=== PATIENT | female | born 1965 | race Caucasian/White ===

== ENCOUNTER 2017-12-27 18:00 | Emergency (ER) | payer OTHER ==
[2017-12-27 18:12] VITALS: BP 125/80
--- NOTE | 2017-12-27 18:27 | ED ---
Skin Complaint - HPI Summary HPI Summary: 52F presents with rash on chest and neck for past 2 days. She states rash did start after she touched her nephew who lives with someone who works outdoors. She has never had this rash before. She states the rash is itchy. She has not tried anything on it. She states she did have a runny nose a week ago. [place] a [place] ago. She is concerned she has the measles but she denies any fever or eye pain or discharge. The rash is spreading. She denies any new products or soaps. She denies any cough. - History of Current Complaint Chief Complaint: UCRash Time Seen by Provider: 12/27/17 18:17 Stated Complaint: RASH Pain Intensity: 2 - Allergy/Home Medications Allergies/Adverse Reactions: Allergies Allergy/AdvReac Type Severity Reaction Status Date / Time No Known Allergies Allergy Verified 12/27/17 18:13 PMH/Surg Hx/FS Hx/Imm Hx Endocrine/Hematology History: Denies: Hx Diabetes Cardiovascular History: Denies: Hx Hypertension, Hx Pacemaker/ICD Respiratory History: Denies: Hx Asthma History: Denies: Hx Renal Disease Musculoskeletal History: Denies: Hx Rheumatoid Arthritis, Hx Osteoporosis Sensory History: Denies: Hx Hearing Aid Neurological History: Denies: Hx Headaches Psychiatric History: Denies: Hx Panic Disorder - Cancer History Hx Chemotherapy: No Hx Radiation Therapy: No Infectious Disease History: No Infectious Disease History: Denies: Traveled Outside the [place] in Last 30 Days - Family History Known Family History: Positive: Other - no fam history of ezcema - Social History Alcohol Use: Occasionally Substance Use Type: Reports: None Smoking Status (MU): Never Smoked Tobacco Review of Systems Negative: Fever Negative: Chest Pain Negative: Shortness Of Breath Positive: Rash All Other Systems Reviewed And Are Negative: Yes Physical Exam Triage Information Reviewed: Yes Vital Signs On Initial Exam: Initial Vitals Temp Pulse Resp BP Pulse Ox 99.1 F 57 18 125/80 100 12/27/17 18:09 12/27/17 18:09 12/27/17 18:09 12/27/17 18:09 12/27/17 18:09 Vital Signs Reviewed: Yes Appearance: Positive: Well-Appearing Skin: Positive: Warm, Dry, Other - erthymatous patch like rash across chest and neck Head/Face: Positive: Normal Head/Face Inspection Eyes: Positive: Normal, EOMI, LUANN ENT: Positive: Normal ENT inspection, Pharynx normal, TMs normal Respiratory/Lung Sounds: Positive: Clear to Auscultation, Breath Sounds Present Cardiovascular: Positive: Normal, RRR Abdomen Description: Positive: Nontender, Soft Bowel Sounds: Positive: Present Musculoskeletal: Positive: Normal Neurological: Positive: Normal Psychiatric: Positive: Normal Diagnostics - Vital Signs Vital Signs Temp Pulse Resp BP Pulse Ox 12/27/17 18:09 99.1 F 57 18 125/80 100 - Laboratory Lab Statement: Any lab studies that have been ordered have been reviewed, and results considered in the medical decision making process. Course/Dx - Course Course Of Treatment: 52F presents with rash on chest and neck for past 2 days. She states rash did start after she touched her nephew who lives with someone who works outdoors. She has never had this rash before. She states the rash is itchy. She has not tried anything on it. She states she did have a runny nose a week ago. She came back from [place] a [place] ago. She is concerned she has the measles but she denies any fever or eye pain or discharge. The rash is spreading. She denies any new products or soaps. She denies any cough. on exam lungs CTA. rash is erythematous patches across anterior neck and chest in v shape most consistent with contact dermatitis. rash not consistent with measles and has none of the other symptoms. will prescribe steriod. patient understand and agrees with plan. - Differential Diagnoses - Skin Complaint Differential Diagnoses: Cellulitis, Contact Dermatitis, Viral Exanthem - Diagnoses Provider Diagnoses: Rash Discharge - Sign-Out/Discharge Documenting (check all that apply): Discharge - Discharge Plan Condition: Good Disposition: HOME Prescriptions: methylPREDNISolone [Medrol Dosepak 4 MG*] 4 mg PO .SEE [place] INSTRUCTION #4 packet Patient Education Materials: Contact Dermatitis (ED) Referrals: Jenny Smith MD [Primary Care Provider] - Additional Instructions: Can apply cream with hydrocortisone to area for itchy Follow directions on dose pack for steroid Follow up with primary within 5 days Return to ED if develop any new or worsening symptoms - Billing Disposition and Condition Condition: GOOD Disposition: HOME
== END 2017-12-27 18:40 | disposition home or self-care (01) ==
LOC: UCEAST 18:00
DX: R21 Rash and other nonspecific skin eruption (principal)
CPT/HCPCS: 99212; G0463